=== PATIENT | male | born 1960 | race Caucasian/White ===

== ENCOUNTER → 2020-05-19 | Outpatient (CLI) | payer BC ==
--- NOTE | 2020-05-19 09:03 | CT ---
EXAMINATION TYPE: CT brain wo con DATE OF EXAM: 05/19/2020 HISTORY: Left sided ear pain with hearing loss and buzzing. CT DLP: 1180.9 mGycm. Automated Exposure Control for Dose Reduction was Utilized. TECHNIQUE: CT scan of the head is performed without contrast. COMPARISON: CT brain July 31, 2012. FINDINGS: There is no acute intracranial hemorrhage or midline shift identified. There is diffuse v entricular and sulcal prominence consistent with diffuse age-related cerebral atrophy. Marinelli-white mat ter differentiation fairly well maintained. [id number] mucosal thickening with some lobulation involving the maxillary sinuses bilaterally remains present. Moderate mucosal thickening and patchy o pacification ethmoid sinuses bilaterally again seen. Mild mucosal thickening inferior right frontal s inus and left greater than right sphenoid sinuses on current study. Globes are intact bilaterally. IMPRESSION: No acute intracranial hemorrhage or midline shift. There is mild diffuse age-related ce rebral atrophy redemonstrated and mild to moderate acute on chronic paranasal sinus disease redemonst rated, latter slightly more prominent versus prior.
== END | disposition home or self-care (01) ==
LOC: RADCTMAIN 07:50
PROVIDERS: ATTEND Internal Medicine
DX: G31.1 Senile degeneration of brain, not elsewhere classified (principal); Z88.0 Allergy status to penicillin; Z88.1 Allergy status to other antibiotic agents; Z88.8 Allergy status to other drugs, medicaments and biological substances
CPT/HCPCS: 70450

== ENCOUNTER → 2021-04-15 | Outpatient (CLI) | payer BC ==
--- NOTE | 2021-04-16 03:50 | MR ---
EXAMINATION TYPE: MR iac wo/w con DATE OF EXAM: 04/15/2021 COMPARISON: None HISTORY: Left sided hearing loss. CONTRAST: Standard multiplanar, multisequence MRI departmental protocol utilizing 11 mL intravenous Gadavist ga dolinium contrast. Multiplanar multiecho imaging of the brain and internal auditory canals was performed without and wit h IV contrast. There is some cerebral cortical atrophy. There is no mass effect nor midline shift. There is no evide nce of intracranial hemorrhage. Diffusion images show no definite focal acute infarct. The serrano-white matter structures have fairly normal signal pattern. There is no evidence of cerebral edema. Brainst em is intact. There is no evidence of orbital mass. There is mucosal thickening in the ethmoid sinuse s. There is mucosal thickening in the maxillary sinuses. Additional thin sections through the posterior fossa show normal appearing internal auditory canals. The acoustic nerve and vestibular nerve appear intact. The contrast images show no pathologic enhance ment. There is no sign of cerebellopontine angle mass. There is normal signal pattern of the mastoid sinuses. There is no sign of mastoiditis. There is normal enhancement of the venous sinuses. IMPRESSION: Negative MR scan of the brain. No focal posterior fossa abnormality. Ethmoid and maxillary sinusitis.
== END | disposition home or self-care (01) ==
LOC: RADMRIMAIN 21:27
PROVIDERS: ATTEND Otolaryngology
DX: H91.92 Unspecified hearing loss, left ear (principal); J32.8 Other chronic sinusitis
CPT/HCPCS: 70553; A9585

== ENCOUNTER 2021-07-25 15:06 | Emergency (ER) | payer BC ==
[2021-07-25 15:12] VITALS: TEMP 97.9
--- NOTE | 2021-07-25 15:27 | ED ---
General Adult HPI - General Source: patient Mode of arrival: ambulatory Limitations: no limitations <Bi Rodriguez - Last Filed: 07/25/21 15:27> <Nirav Lopez - Last Filed: 07/25/21 18:49> - General Chief complaint: Chest Pain Stated complaint: Chest Pain Time Seen by Provider: 07/25/21 15:19 - History of Present Illness Initial comments: Dictation was produced using [employer] dictation software. please excuse any grammatical, word or spelling errors. Chief Complaint: Patient is a 60-year-old male presents emergency department for chest pain for 3 weeks History of Present Illness: She 10-year-old male presents emergency department for chest pain. He states she's been having chest pain for the last 3 weeks. States that sharp into his right chest. Worse when he takes a deep breath. Patient denies any shortness of breath. He was seen at [facility] was diagnosed with pneumonia. He is given antibiotics. He completed the course however still is symptomatic in his chest. Patient has a history of blood clots. No recent travel. Denies any lower extremity symptoms. No calf tenderness or leg swelling. Is any fever. He has not been coughing recently. The ROS documented in this emergency department record has been reviewed and confirmed by me. Those systems with pertinent positive or negative responses have been documented in the HPI. All other systems are other negative and/or noncontributory. PHYSICAL EXAM: General Impression: Alert and oriented x3, not in acute distress HEENT: Normocephalic atraumatic, extra-ocular movements intact, pupils equal and reactive to light bilaterally, mucous membranes moist. Cardiovascular: Heart regular rate and rhythm Chest: Able to complete full sentences, no retractions, no tachypnea Abdomen: abdomen soft, non-tender, non-distended, no organomegaly Musculoskeletal: Pulses present and equal in all extremities, no peripheral edema Motor: no focal deficits noted Neurological: CN II-XII grossly intact, no focal motor or sensory deficits noted Skin: Intact with no visualized rashes Psych: Normal affect and mood ED course: 60-year-old male presents to the emergency department for atypical chest pain. Vital signs upon arrival are within acceptable limits. EKG shows no signs of ischemia or infarction. There is some concern that patient is having a PE given the duration of symptoms. D-dimer is ordered. He is not hypoxic and not tachycardic. Patient care will be signed out to Dr. Lopez. EKG interpretation: Ventricular rate he 1, normal sinus rhythm,. 164, QRS 82, QTC 46. No MA prolongation, no QTC prolongation, no ST or T-wave changes noted. Overall, this EKG is unremarkable (Bi Rodriguez) - Related Data Home Medications Medication Instructions Recorded Confirmed ALPRAZolam [Xanax] 0.5 mg PO BID PRN 07/25/21 07/25/21 HYDROcodone/APAP 10-325MG [[place] 1 tab PO QID 07/25/21 07/25/21 10-325] Meclizine [Antivert] 25 mg PO TID PRN 07/25/21 07/25/21 Omeprazole Magnesium [PriLOSEC OTC] 20 mg PO DAILY PRN 07/25/21 07/25/21 buPROPion HCL [buPROPion HCL SR] 150 mg PO DAILY 07/25/21 07/25/21 busPIRone HCL 7.5 - 15 mg PO TID PRN 07/25/21 07/25/21 Previous Rx's Medication Instructions Recorded levoFLOXacin 750 mg PO DAILY 7 Days #1 tab 07/25/21 Allergies Allergy/AdvReac Type Severity Reaction Status Date / Time No Known Allergies Allergy Verified 07/25/21 16:46 Review of Systems ROS Other: All systems not noted in ROS Statement are negative. <Bi Rodriguez - Last Filed: 07/25/21 15:27> ROS Other: All systems not noted in ROS Statement are negative. <Nirav Lopez - Last Filed: 07/25/21 18:49> ROS Statement: Those systems with pertinent positive or pertinent negative responses have been documented in the HPI. Past Medical History History of Any Multi-Drug Resistant Organisms: None Reported Past Surgical History: No Surgical Hx Reported Past Psychological History: Anxiety, Depression Smoking Status: Current every day smoker Past Alcohol Use History: None Reported Past Drug Use History: None Reported <Bi Rodriguez - Last Filed: 07/25/21 15:27> General Exam Limitations: no limitations <Bi Rodriguez - Last Filed: 07/25/21 15:27> Course Vital Signs 0107/25/21 07/25/21 15:08 15:36 18:37 Temperature 97.9 F Pulse Rate 55 L 69 Respiratory 22 18 18 Rate Blood Pressure 119/80 131/98 O2 Sat by Pulse 100 99 Oximetry Medical Decision Making - Lab Data Result diagrams: 07/25/21 15:34 07/25/21 15:34 <Nirav Lopez - Last Filed: 07/25/21 18:49> - Medical Decision Making Patient was signed out to me pending results of imaging. Patient presented originally complaining of pleurisy mild cough. He was treated for pneumonia one to 2 weeks ago, normally received a Z-Jarett. Believes that he requires stronger antibiotics. Laboratory studies were remarkable for leukocytosis of 15. D- dimer was elevated 2.22. EKG was evaluated by the prior ER physician and showed no signs of acute ischemia. Chest x-ray showed right upper lobe infiltrates. CT angiogram was pending and was remarkable for no pulmonary embolism but there are right upper lobe infiltrates. On reevaluation, patient's vital signs remained within normal limits and stable. He has no acute complaints at this time. I discussed the results with him. Hi s pain is improved. I do believe that he requires an additional dose of anabiotic so this time. He was in agreement. He'll be given Levaquin outpatient and be given a dose prior to discharge. I believe it is safe for him to be discharged home at this time and he was in agreement with the plan. I will provide the patient with a prescription for Levaquin 750 mg daily for 7 days. I instructed the patient to follow up with their PCP in the next 3 days. I explained that the patient should return to the emergency department if they experience any worsening symptoms. Strict return precautions were discussed with the patient. The patient expressed understanding of these instructions. I answered all questions that the patient had. The patient was discharged home in good condition with their prescriptions and follow up information. (Nirav Lopez) - Lab Data Lab Results 07/25/21 07/25/21 07/25/21 Range/Units 15:34 15:34 15:34 WBC 15.0 H (3.8-10.6) k/uL RBC 4.81 (4.30-5.90) m/uL Hgb 15.3 (13.0-17.5) gm/dL Hct 45.4 (39.0-53.0) % MCV 94.4 (80.0-100.0) fL MCH 31.7 (25.0-35.0) pg MCHC 33.6 (31.0-37.0) g/dL RDW 12.3 (11.5-15.5) % Plt Count 274 (150-450) k/uL MPV 6.9 Neutrophils % 73 % Lymphocytes % 19 % Monocytes % 5 % Eosinophils % 2 % Basophils % 1 % Neutrophils # 10.9 H (1.3-7.7) k/uL Lymphocytes # 2.9 (1.0-4.8) k/uL Monocytes # 0.7 (0-1.0) k/uL Eosinophils # 0.3 (0-0.7) k/uL Basophils # 0.1 (0-0.2) k/uL PT 9.9 (9.0-12.0) sec INR 0.9 (<1.2) APTT 24.1 (22.0-30.0) sec D-Dimer 2.22 H (<0.60) mg/L FEU Sodium 136 L (137-145) mmol/L Potassium 3.9 (3.5-5.1) mmol/L Chloride 104 (98-107) mmol/L Carbon Dioxide 25 (22-30) mmol/L Anion Gap 7 mmol/L BUN 16 (9-20) mg/dL Creatinine 1.17 (0.66-1.25) mg/dL Est GFR (CKD-EPI)AfAm 78 (>60 ml/min/1.73 sqM) Est GFR (CKD-EPI)NonAf 68 (>60 ml/min/1.73 sqM) Glucose 102 H (74-99) mg/dL Calcium 9.5 (8.4-10.2) mg/dL Coronavirus (PCR) (Not Detectd) 07/25/21 Range/Units 16:13 WBC (3.8-10.6) k/uL RBC (4.30-5.90) m/uL Hgb (13.0-17.5) gm/dL Hct (39.0-53.0) % MCV (80.0-100.0) fL MCH (25.0-35.0) pg MCHC (31.0-37.0) g/dL RDW (11.5-15.5) % Plt Count (150-450) k/uL MPV Neutrophils % % Lymphocytes % % Monocytes % % Eosinophils % % Basophils % % Neutrophils # (1.3-7.7) k/uL Lymphocytes # (1.0-4.8) k/uL Monocytes # (0-1.0) k/uL Eosinophils # (0-0.7) k/uL Basophils # (0-0.2) k/uL PT (9.0-12.0) sec INR (<1.2) APTT (22.0-30.0) sec D-Dimer (<0.60) mg/L FEU Sodium (137-145) mmol/L Potassium (3.5-5.1) mmol/L Chloride (98-107) mmol/L Carbon Dioxide (22-30) mmol/L Anion Gap mmol/L BUN (9-20) mg/dL Creatinine (0.66-1.25) mg/dL Est GFR (CKD-EPI)AfAm (>60 ml/min/1.73 sqM) Est GFR (CKD-EPI)NonAf (>60 ml/min/1.73 sqM) Glucose (74-99) mg/dL Calcium (8.4-10.2) mg/dL Coronavirus (PCR) Not Detected (Not Detectd) Disposition <Bi Rodriguez - Last Filed: 07/25/21 15:27> Is patient prescribed a controlled substance at d/c from ED?: No <Nirav Lopez - Last Filed: 07/25/21 18:49> Clinical Impression: Community acquired pneumonia, Pleurisy Disposition: HOME SELF-CARE Condition: Good Instructions (If sedation given, give patient instructions): Pneumonia (ED) Prescriptions: levoFLOXacin 750 mg PO DAILY 7 Days #1 tab Referrals: Froilan Salguero MD [Primary Care Provider] - 1-2 days
[2021-07-25 15:40] VITALS: RESP 18
[2021-07-25 15:46] LABS: Basophils # (A) 0.1 k/uL (0-0.2); Basophils % (A) 1 %; Eosinophils # (A) 0.3 k/uL (0-0.7); Eosinophils % (A) 2 %; HCT 45.4 % (39.0-53.0); HGB 15.3 gm/dL (13.0-17.5); Lymphocytes # (A) 2.9 k/uL (1.0-4.8); Lymphocytes % (A) 19 %; MCH 31.7 pg (25.0-35.0); MCHC 33.6 g/dL (31.0-37.0); MCV 94.4 fL (80.0-100.0); Mean Platelet Volume 6.9; Monocytes # (A) 0.7 k/uL (0-1.0); Monocytes % (A) 5 %; Neutrophils # (A) 10.9 k/uL (1.3-7.7); Neutrophils % (A) 73 %; Platelet Count 274 k/uL (150-450); RBC 4.81 m/uL (4.30-5.90); RDW 12.3 % (11.5-15.5)
[2021-07-25 16:03] LABS: Calcium 9.5 mg/dL (8.4-10.2); INR 0.9 (<1.2); Partial Thromboplastin Time 24.1 sec (22.0-30.0); Potassium 3.9 mmol/L (3.5-5.1); Prothrombin Time 9.9 sec (9.0-12.0)
--- NOTE | 2021-07-25 16:18 | XR ---
EXAMINATION TYPE: XR chest 1V portable DATE OF EXAM: 07/25/2021 COMPARISON: NONE HISTORY: Chest pain TECHNIQUE: Single frontal view of the chest is obtained. FINDINGS: Patchy increased attenuation is present in the right upper lobe. Cardiac mediastinal silho uette is within normal limits. There is no evident pneumothorax or pleural effusion. Right hemidiaphr agm shows possible eventration change. Bones are normal. IMPRESSION: Correlate for pneumonia.
--- NOTE | 2021-07-25 17:58 | CT ---
EXAMINATION TYPE: CT angio chest DATE OF EXAM: 07/25/2021 COMPARISON: None HISTORY: chest pain CT DLP: 638 mGycm Automated exposure control for dose reduction was used. CONTRAST: Performed with IV Contrast, patient injected with 80cc mL of Isovue 370. Images obtained from the thoracic inlet to the diaphragm with IV contrast. Three-D postprocessed images. There are multiple enlarged paratracheal and right bronchial lymph nodes that measure up to 3 cm. The re is some encasement of the right pulmonary artery. Thoracic aorta is intact. There is no aneurysm o r dissection. Anterior mediastinum appears fairly normal. There is no evidence of filling defect in t he pulmonary arteries. There are patchy pulmonary interstitial and airspace infiltrates in the right upper lobe. The other l marquise ron are fairly clear. Upper abdominal soft tissues are intact. There is clips from cholecystectomy. There is 6.5 cm cortica l cyst upper pole right kidney. Heart size is normal. There is no pericardial effusion. There is some sclerosis in the T10 vertebral body consistent with a Schmorl node. There is no significant thoracic compression deformity. Sternum is intact. IMPRESSION: No evidence of pulmonary embolism. There is mediastinal and right bronchial adenopathy. The patchy in filtrates in the right upper lobe. Adenopathy is likely inflammatory.
[2021-07-25] MEDS ORDERED: LEVOFLOXACIN 750 MG TAB PO STA (18:20)
[2021-07-25 18:40] VITALS: BP 131/98; PULSE 69
== END 2021-07-25 18:37 | disposition home or self-care (01) ==
LOC: EC 15:06
DX: J18.9 Pneumonia, unspecified organism (principal); Z20.822 Contact with and (suspected) exposure to COVID-19; F32.A Depression, unspecified; F41.9 Anxiety disorder, unspecified; F17.200 Nicotine dependence, unspecified, uncomplicated; Z79.899 Other long term (current) drug therapy
CPT/HCPCS: 36415; 93005; 85379; 80048; 85025; 85610; 85730; 87635; 71045; 71275; 99285; Q9967

== ENCOUNTER 2021-08-25 11:48 | Day surgery (SDC) | payer BC ==
[2021-08-24 08:54] VITALS: BMI 33.4
[~2021-08-25 11:48] MED LIST: ALBUTEROL NEB (CONC) 2.5 MG/0.5 ML INHALATION ONE; DEXAMETHASONE SOD PHOSPHATE 4 MG/ML 1 ML VIAL IV ONE; HYDROmorphone 0.5 MG/0.5 ML SYRINGE IVP PRN; LACTATED RINGERS 1,000 ML IV SCH; LIDOCAINE 1% (10MG/ML) FOR IV START INTRADERMA PRN; LIDOCAINE 2% (PF) 20 MG/ML 5 ML VIAL INHALATION ONE; LIDOCAINE VISCOUS 300 MG/15 ML CUP MUCOUS MEM ONE; MIDAZOLAM 2 MG/2 ML VIAL IV PRN; ONDANSETRON 4 MG/2 ML VIAL IVP ONE; SODIUM CHLORIDE 0.9% 1,000 ML IV SCH
[2021-08-25] MEDS ORDERED: LACTATED RINGERS 1,000 ML IV ONE (12:09)
[2021-08-25] MEDS ORDERED: MIDAZOLAM 2 MG/2 ML VIAL ONE (13:23)
[2021-08-25] MEDS ORDERED: POTASSIUM PHOSPHATE IV ONE (13:23)
[2021-08-25] MEDS ORDERED: GLYCOPYRROLATE 0.2 MG/ML 2 ML VIAL ONE (13:23)
[2021-08-25] MEDS ORDERED: fentaNYL (PF) 50 MCG/ML 2 ML AMP ONE (13:23)
[2021-08-25] MEDS ORDERED: ROCURONIUM 10 MG/ML (5 ML VIAL) IV ONE (13:23)
[2021-08-25] MEDS ORDERED: PROPOFOL 10 MG/ML 20 ML VIAL IV ONE (13:23)
[2021-08-25] MEDS ORDERED: LIDOCAINE 1% INJ 10MG/ML (20 ML MDV) ONE (13:23)
[2021-08-25] MEDS ORDERED: SUCCINYLCHOLINE CHLORIDE 100 MG/5 ML SYR IV ONE (13:23)
--- NOTE | 2021-08-25 14:03 | CT ---
EXAMINATION TYPE: CT Chest mikael Shafer Protocol DATE OF EXAM: 08/25/2021 COMPARISON: CT chest 07/25/2021 HISTORY: Bronchial Navigation. CT DLP: 555 mGycm Automated exposure control for dose reduction was used. Helical imaging through the chest 4 procedure planning purposes. FINDINGS: Subpleural nodule in the left lower lobe is again noted. Left upper lobe lung nodule is again seen. M ultiple nodules in the right upper lobe are present as on prior. Subpleural nodule in the right lower lobe again seen, there is no pleural or pericardial effusion. No endobronchial lesion. Retrocaval pr etracheal adenopathy, prevascular nodes are again seen. Right hilar adenopathy is present. Bones are stable. There are coronary artery calcifications. IMPRESSION: FINDINGS SUGGEST METASTATIC DISEASE. CT PERFORMED FOR PROCEDURE PLANNING PURPOSES.
[2021-08-25 14:55] VITALS: TEMP 97.8
--- NOTE | 2021-08-25 15:23 | XR ---
EXAMINATION TYPE: XR chest 1V portable DATE OF EXAM: 08/25/2021 COMPARISON: Chest x-ray 07/24/2021, 08/12/2021 HISTORY: Status post bronchoscopy TECHNIQUE: Single frontal view of the chest is obtained. FINDINGS: There is no evident pneumothorax. Airspace disease in the right upper lobe may be due to b ronchoscopy. There is no evident pneumothorax or pleural effusion. There is mediastinal adenopathy. IMPRESSION: Post bronchoscopy changes, no evident pneumothorax, difficult to exclude hemorrhage vers us changes due to washings.
[2021-08-25 15:56] VITALS: BP 116/70; PULSE 62; RESP 16
--- NOTE | 2021-08-25 18:52 | P.PCN ---
Date of Procedure: 08/25/21 Preoperative Diagnosis: 1 right hilar mass 2 mediastinal lymphadenopathy 3 right upper lobe Pulmonary nodules, multiple Postoperative Diagnosis: 1 mediastinal lymphadenopathy 2 extrinsic compression of the anterior segment of the right upper lobe with possible endobronchial involvement Procedure(s) Performed: 1 Endobronchial ultrasound EBUS 2 EBUS directed/guidance transbronchial needle aspirate of station 4R, 10 on and 7 lymph nodes 3 endobronchial biopsies of the right upper lobe anterior segment, and the bronchial brushing, bronchial alveolar lavage of the right upper lobe. Anesthesia: NICOLEA Surgeon: Vishnu Pop Urine output (ml): 0 Pathology: other Condition: stable Disposition: same day Operative Findings: This procedure was done in the endoscopy suite. Timeout was obtained. Consent was signed. Following that, the patient was intubated in the usual fashion by anesthesia team. The patient was intubated by #8 orotracheal tube. Position of the tube was confirmed by a flexible bronchoscope. The tube was fixed at 21 cm lip line and the length of the tube was also cut and the patient was given appropriate mechanical ventilation to maintain oxygenation and ventilation After securing the airway, the EBUS bronchoscope was introduced into the airway. Direct visualization using the EBUS bronchoscope of the mediastinum was done. Based on my examination, there was a large station 4R lymph node measuring more than 3.5, cm in size and another 3 cm station 10 R lymph node was identified. At the level of the subcarinal, there was a 1.3 x 1 cm subcarinal lymph node identified. No lymphadenopathy along this patient's 2L, 4 mL, 2R, 10 L, 10 R, 11R. After echo good visualization of the mediastinal lymph nodes, the main pathology for pathologic lymph nodes were station 4R, 10 R and less likely station 7. He was guided transbronchial needle aspirate of those 3 stations were done. A total of 3 passes were taken at the level of 4R, 5 passes of the level of 10 R, repair through the level of 7 and adequacy of the samples were confirmed by pathology the bedside. Cell blocks were also sent. No endobronchial bleeding was encountered Following that, he was bronchoscope was removed and a regular flexible bronchoscope was introduced. Airway inspection was done. Distal trachea was within normal limits. Bilateral mainstem bronchi were normal. The right upper lobe bronchus was patent. The anterior segment of the right upper lobe bronchus was significantly narrowed and was very difficult to get the bronchoscope past the right upper lobe bronchus anterior segment. This area was extensively compressed and there was high likelihood that there was endobronchial involvement knowing that the underlying mucosa was quite irregular and swollen and friable. The apical segment of the ST segment in the right upper lobe were patent and there were within normal limits. The bronchoscope was noted to the bronchus intermedius and further examination of the right middle lobe bronchus and the right lower lobe bronchus and the base segment of the right lung were within normal limits. Following that, the bronchus, was moved to the left side and the left mainstem bronchus, left upper lobe bronchus and left lower bronchus were inspected and the various segments of the left upper lobe and the left lower lobe were patent. The bronchoscope was then removed today and his segment of the right upper lobe. Under direct visualization, endobronchial biopsies of the right upper lobe anterior segment was done and 7-8 biopsies were obtained in that location. Limited amount of bleeding was encountered. In the bronchial brushing of the anterior segment of the right upper lobe was done and at the completion of the procedure, and bronchial lavage of that his segment of the right upper lobe was done where a total of 60 mL of fluid was infused and 50 mL was aspirated back. No bleeding was encountered. The patient tolerated the procedure well. Herpetic and was suctioning was done. Bronchoscope was removed. Following that, the patient was extubated and the patient was transferred recovery in stable condition. Postop diagnosis is consistent with mediastinal lymphadenopathy in addition to mass effect involving the anterior segment of the right upper lobe, hilar echo for malignancy/lung cancer.
== END 2021-08-25 16:05 | disposition home or self-care (01) ==
LOC: ORWHC2ENDO 11:48
PROVIDERS: ATTEND Internal Medicine Critical Care Medicine
DX: Z79.891 Long term (current) use of opiate analgesic (principal); Z79.899 Other long term (current) drug therapy; G89.29 Other chronic pain; M54.9 Dorsalgia, unspecified; Z87.01 Personal history of pneumonia (recurrent); F17.200 Nicotine dependence, unspecified, uncomplicated; Z90.49 Acquired absence of other specified parts of digestive tract; Z98.890 Other specified postprocedural states; K21.9 Gastro-esophageal reflux disease without esophagitis
CPT/HCPCS: 88305; 71045; 71250; 31625; 31623; 31624; 31653; J2250; J1100; J2405; J2001; J3010; J0330; J2704; 31627; 88104; 88108; 88173; 88341; 88342

== ENCOUNTER → 2021-09-08 | Outpatient (CLI) | payer BC ==
--- NOTE | 2021-09-08 11:59 | MR ---
EXAMINATION TYPE: MR brain wo/w con DATE OF EXAM: 09/08/2021 11:51 AM COMPARISON: 04/15/2021 HISTORY: C34.11 Lung cancer, Chronic Left sided hearing loss CONTRAST: Patient received 10 mL intravenous Gadavist gadolinium contrast. Multiplanar and multispin-echo imaging of the brain was performed . Pre and post contrast enhanced i mages are obtained. The ventricles, basal cisterns and sulci overlying the cerebral convexities are mildly enlarged. There is evidence of mild periventricular white matter ischemic demyelination. Remote deep white matter insults are also noted. No acute edema is seen on diffusion weighted imaging. There is no evidence for midline shift or mass effect. Acute intracranial hemorrhage or extra-axial collection is not evident. No enhancing lesions are seen. The paranasal sinuses and mastoid air cells are well-aerated. IMPRESSION: Age-related atrophic and chronic small vessel ischemic change. No acute intracranial process at this time. No enhancing lesions are seen.
== END | disposition home or self-care (01) ==
LOC: RADMRIMAIN 10:43
PROVIDERS: ATTEND Internal Medicine Hematology & Oncology
DX: C34.11 Malignant neoplasm of upper lobe, right bronchus or lung (principal); I67.82 Cerebral ischemia; G31.89 Other specified degenerative diseases of nervous system
CPT/HCPCS: 70553; A9585

== ENCOUNTER → 2021-09-16 | Outpatient (CLI) | payer BC ==
--- NOTE | 2021-09-19 15:29 | PE ---
Nuclear medicine PET/CT HISTORY: Lung carcinoma, C 34.11, initial, right Patient received 11.9 mCi F-18 FDG intravenously and delayed scanning was performed from the skull ba se to the mid thighs. A localization and attenuation correction CT scan was performed. Correlation to chest CT 08/25/2021, CT 07/25/2021 Average mediastinal uptake SUV 2, average liver uptake, SUV 2.2 Chest and neck: There is no supraclavicular or cervical adenopathy present. The retrocaval pretracheal mediastinal mass shows associated hypermetabolic uptake, SUV is 5.3. Right hilar adenopathy SUV 8.6, prevascular nodes are present with associated abnormal uptake SUV 3.8, the re is a left upper lobe soft tissue nodule present adjacent to the mediastinum measuring 19 mm with a ssociated uptake, SUV is 3. In the left posterior lung base there is a soft tissue nodule present as noted on prior CT. Subpleural nodules also present at the posterior right lung base as on prior exam. Within the right upper lobe along the fissure soft tissue nodule is again noted, additional right up per lobe soft tissue nodules are present one of which is in the subpleural location with associated s piculated margins, no significant uptake. Additional nodules are present in the right upper lobe towa rds the apex without uptake. ABDOMEN: No evident liver mass. No adrenal mass. Right kidney shows a soft tissue mass anteriorly ed picious for renal cell carcinoma measuring approximately 6.2 cm., SUV 3.2. No retroperitoneal adenopa thy or ascites. Left inguinal adenopathy is present with associated uptake, SUV 9.4. Osseous structures show multiple foci of hypermetabolic uptake. Lower thoracic vertebral body shows a bnormal SUV, focus of uptake SUV 4.6 at T10 with focus of sclerosis, central lytic appearance. Lower lumbar spine shows a focus of uptake SUV is 12.9 at L4. Posterior iliac lesions are present bilateral ly, there are areas of sclerosis and mixed low attenuation, SUV 7.1, 6.8. impression: Metastatic disease. Possible renal cell carcinoma.
== END | disposition home or self-care (01) ==
LOC: RADPETMAIN 14:14
PROVIDERS: ATTEND Internal Medicine Hematology & Oncology
DX: C34.11 Malignant neoplasm of upper lobe, right bronchus or lung (principal); C79.9 Secondary malignant neoplasm of unspecified site
CPT/HCPCS: 78815; A9552

== ENCOUNTER → 2021-12-23 | Outpatient (CLI) | payer BC ==
--- NOTE | 2021-12-27 15:21 | PE ---
Nuclear medicine PET/CT HISTORY: C 34.11, right lung carcinoma, subsequent Patient received 10.1 mCi F-18 FDG intravenously and delayed scanning was performed from the skull ba se to the mid thighs. A localization and attenuation correction CT scan was performed. Correlation prior nuclear medicine PET/CT 09/16/2021 Average mediastinal uptake SUV 1.5, average liver uptake SUV 1.6 Chest and neck: There is improvement in the abnormal uptake seen on prior exam. No cervical or suprac lavicular adenopathy. Left prevascular node measures 15 mm in short axis shows abnormal uptake, SUV 4 , left hilar soft tissue is irregular, SUV 2.6. The abnormal soft tissue in the right hilar region rodriguez s improved somewhat, retrocaval pretracheal node does not show appreciable uptake, right hilar uptake seen on prior exam is no longer seen. There is a small right pleural effusion which has developed in the interval. Small subpleural node at the left posterior costophrenic sulcus is subcentimeter in si ze, similar. Uptake along the thyroid gland is symmetric and increased as compared to prior, SUV 3.4 ABDOMEN: There is no evident adrenal mass. No liver mass or suspicious uptake. Soft tissue mass anter iorly at the level of the right kidney is again seen and measures approximately the same, 6 cm, no de finite associated uptake. Smaller indeterminate exophytic soft tissue focus at the lower pole of the right kidney is present. No retroperitoneal adenopathy. No suspicious uptake. Prostate shows associat ed calcifications. No pelvic adenopathy. Bladder is decompressed, thickening of the wall is indetermi nadine. Left inguinal node shows associated uptake, SUV 4.0 Osseous structures show no suspicious uptake. There is sclerosis involving the iliac bones posteriorl y similar to prior, right ilium shows some persistent abnormal uptake, SUV 4.7. IMPRESSION: There is improvement in abnormal uptake as described
== END | disposition home or self-care (01) ==
LOC: RADPETMAIN 08:15
PROVIDERS: ATTEND Internal Medicine Hematology & Oncology
DX: C34.11 Malignant neoplasm of upper lobe, right bronchus or lung (principal)
CPT/HCPCS: 78815; A9552

== ENCOUNTER → 2022-04-07 | Outpatient (CLI) | payer BC ==
--- NOTE | 2022-04-09 13:55 | PE ---
EXAMINATION TYPE: PET CT fusion skull to thigh DATE OF EXAM: 04/07/2022 CLINICAL INDICATION:Male, 61 years old with history of C34.11 lung cancer; TECHNIQUE: Following the intravenous administration of 12.5 mCi of F-18 FDG, whole body images are performed from the skull base to the midthigh. Images are reviewed on the computer in the coronal, a xial, and sagittal planes. Reconstructed rotating images are created on independent workstation and reviewed on the computer. A non-contrast CT is performed in conjunction with the PET scan. Glucose level 96 mg/dL COMPARISON: CT 08/26/2019, PET/CT 12/23/2021 and 09/16/2021 FINDINGS: Mediastinal SUV mean is 1.0. Hepatic parenchyma SUV mean is 2.6. SKULL BASE AND NECK: No suspicious FDG activity. CHEST, MEDIASTINUM, AND HILAR REGION: Persistent FDG activity is seen within the left upper lung along the mediastinal border with 2 areas demonstrate increased FDG activity with the more inferior measuring Max SUV 6.6 previously Max SUV 2. 6. Now measuring larger at 2.0 cm previously 1.0 cm. An additional mass more superiorly measuring lar zaira at 2.3 cm previously 1.5 measuring in maximum SUV 7.0 previously max SUV 3.9 may represent medias tinal lymph node in the AP window. ABDOMEN AND PELVIS: No suspicious FDG activity. OSSEOUS STRUCTURES: No suspicious FDG activity within the right iliac bone with max SUV 7.2, previous ly 4.7. T2 left transverse process SUV 2.9, previously 1.6. OTHER CT: Mild coronary artery atherosclerosis. The gallbladder surgically absent. Right renal cysts one of which is more complex and has septations present. IMPRESSION: 1. Progression of disease with increased metabolic activity with increased size of the left upper zulma ng mass with soft tissue in the AP window also demonstrating increased size and FDG activity. 2. Suspicious FDG activity in the right iliac bone which has increased in metabolic activity compared to prior on 12/23/2021. Additional increase FDG activity in the Left transverse process of T2. Attenti on follow-up imaging.
== END | disposition home or self-care (01) ==
LOC: RADPETMAIN 13:19
PROVIDERS: ATTEND Internal Medicine Hematology & Oncology
DX: C34.11 Malignant neoplasm of upper lobe, right bronchus or lung (principal)
CPT/HCPCS: 78815; A9552

== ENCOUNTER 2022-05-25 10:47 | Emergency (ER) | payer BC ==
[2022-05-25 11:20] VITALS: TEMP 98.2
--- NOTE | 2022-05-25 11:52 | XR ---
EXAMINATION TYPE: XR KUB DATE OF EXAM: 05/25/2022 COMPARISON: NONE HISTORY: Pain TECHNIQUE: Single supine KUB image of the abdomen is obtained FINDINGS: Small bowel demonstrates no evidence for dilatation or air fluid levels. Gas and fecal material is seen in non-distended colon. No convincing evidence for pneumoperitoneum. No unusual calcifications. The lung bases are clear. The osseous structures are intact. IMPRESSION: 1. Nonspecific nonobstructive bowel gas pattern.
[2022-05-25 12:04] LABS: Appearance,Urine Clear (Clear); Bacteria,Urine Rare /hpf; Bilirubin,Urine Negative (Negative); Blood,Urine Negative (Negative); Color,Urine Yellow; Glucose,Urine (UA) Negative (Negative); Ketones,Urine Negative (Negative); Leukocyte Esterase,Urine Negative (Negative); Mucus,Urine Occasional /hpf; Nitrite,Urine Negative (Negative); Protein,Urine 1+ (Negative); Specific Gravity,Urine 1.028 (1.001-1.035); WBC,Urine 3 /hpf (0-5)
[2022-05-25] MEDS ORDERED: DICYCLOMINE 20 MG TAB PO STA (13:02)
[2022-05-25] MEDS ORDERED: SODIUM CHLORIDE 0.9% 1,000 ML IV ONE (13:02)
--- NOTE | 2022-05-25 13:08 | ED ---
Abdominal Pain HPI - General Chief Complaint: Abdominal Pain Stated Complaint: abd pain Time Seen by Provider: 05/25/22 12:48 Source: patient Mode of arrival: ambulatory Limitations: no limitations - History of Present Illness Initial Comments: This patient is a 61-year-old man who presents to have evaluation of diffuse abdominal pain. He states it is been going on probably a little over 2 weeks now. The pains are intermittent. They can last hours at a time. He notes that they're sometimes better if he lies down. He has not noted any exacerbating factors. He does note that there seems to be at times a gassy kind of crampy component and at times sharp component. He does have some associated nausea but no vomiting. Patient has not noted any change in urination. Patient does note that he is only having bowel movements every 5 days to a week or so. No bloody or tarry stools. MD Complaint: abdominal pain Onset/Timin -: week(s) Location: diffuse Radiation: none Migration to: no migration Severity: moderate Quality: cramping, sharp Consistency: intermittent Improves With: nothing Worsens With: nothing Associated Symptoms: nausea, constipation - Related Data Home Medications Medication Instructions Recorded Confirmed HYDROcodone/APAP 10-325MG [[place] 1 tab PO QID 07/25/21 08/24/21 10-325] Meclizine [Antivert] 25 mg PO TID 07/25/21 08/24/21 Omeprazole Magnesium [PriLOSEC OTC] 20 mg PO DAILY 07/25/21 08/24/21 buPROPion HCL [buPROPion HCL SR] 150 mg PO DAILY 08/24/21 08/24/21 hydrOXYzine HCL 10 mg PO BID PRN 08/24/21 08/24/21 Previous Rx's Medication Instructions Recorded oxyCODONE-APAP 7.5-325MG [Percocet 1 tab PO Q4HR PRN 3 Days #18 tab 05/25/22 7.5-325 mg] Allergies Allergy/AdvReac Type Severity Reaction Status Date / Time No Known Allergies Allergy Verified 05/25/22 11:20 Review of Systems ROS Statement: Those systems with pertinent positive or pertinent negative responses have been documented in the HPI. ROS Other: All systems not noted in ROS Statement are negative. Constitutional: Denies: fever, chills Respiratory: Denies: cough, dyspnea Cardiovascular: Denies: chest pain, palpitations Gastrointestinal: Reports: abdominal pain, nausea, constipation. Denies: vomiting, diarrhea, hematemesis, melena, hematochezia Genitourinary: Denies: dysuria, frequency, hematuria, testicular pain Musculoskeletal: Denies: back pain Skin: Denies: rash Neurological: Denies: headache, weakness, numbness Past Medical History Past Medical History: Cancer, GERD/Reflux Additional Past Medical History / Comment(s): Chronic back pain. Vertigo. small cell lung CA History of Any Multi-Drug Resistant Organisms: None Reported Past Surgical History: No Surgical Hx Reported Past Anesthesia/Blood Transfusion Reactions: No Reported Reaction Additional Past Anesthesia/Blood Transfusion Reaction / Comment(s): Has never had anesthesia. Past Psychological History: Anxiety, Depression Smoking Status: Current every day smoker Past Alcohol Use History: None Reported Past Drug Use History: None Reported - Past Family History Mother Family Medical History: Cancer Father Family Medical History: Cancer General Exam Limitations: no limitations General appearance: alert, in no apparent distress Head exam: Present: atraumatic, normocephalic Eye exam: Present: normal appearance. Absent: scleral icterus, conjunctival injection Neck exam: Present: normal inspection Respiratory exam: Present: normal lung sounds bilaterally. Absent: respiratory distress, wheezes, rales, rhonchi, stridor Cardiovascular Exam: Present: regular rate, normal rhythm, normal heart sounds. Absent: systolic murmur, diastolic murmur, rubs, gallop GI/Abdominal exam: Present: soft. Absent: distended, tenderness, guarding, rebound, rigid, organomegaly, mass, pulsatile mass, hernia Extremities exam: Present: normal inspection, normal capillary refill. Absent: pedal edema, calf tenderness Back exam: Present: normal inspection. Absent: CVA tenderness (R), CVA tenderness (L) Neurological exam: Present: alert Skin exam: Present: warm, dry, intact, normal color. Absent: rash Course Vital Signs 05/25/22 05/25/22 11:17 15:46 Temperature 98.2 F Pulse Rate 70 60 Respiratory 18 18 Rate Blood Pressure 108/75 120/89 O2 Sat by Pulse 96 98 Oximetry Medical Decision Making - Medical Decision Making Patient is a 61-year-old man here with abdominal pain and found to have some mild pancreatitis as well as some suspected new metastatic disease. He has had decent relief of pain with the analgesic here. I discussed at my plan was to admit him and have him seen by his oncologist as well as have GI rest for the pancreatitis. The patient stated that he wanted to go home. He will follow-up with the oncologist tomorrow. He will return should there be any worsening or if he is not having adequate pain relief at home. Discussed other return parameters. - Lab Data Result diagrams: 05/25/22 13:11 05/25/22 13:11 Lab Results 05/25/22 05/25/22 05/25/22 Range/Units 11:36 13:11 13:11 WBC 12.0 H (3.8-10.6) k/uL RBC 3.70 L (4.30-5.90) m/uL Hgb 12.4 L (13.0-17.5) gm/dL Hct 36.1 L (39.0-53.0) % MCV 97.5 (80.0-100.0) fL MCH 33.4 (25.0-35.0) pg MCHC 34.3 (31.0-37.0) g/dL RDW 12.0 (11.5-15.5) % Plt Count 260 (150-450) k/uL MPV 6.8 Neutrophils % 92 % Lymphocytes % 3 % Monocytes % 4 % Eosinophils % 1 % Basophils % 0 % Neutrophils # 11.1 H (1.3-7.7) k/uL Lymphocytes # 0.3 L (1.0-4.8) k/uL Monocytes # 0.5 (0-1.0) k/uL Eosinophils # 0.1 (0-0.7) k/uL Basophils # 0.0 (0-0.2) k/uL Sodium 132 L (137-145) mmol/L Potassium 4.1 (3.5-5.1) mmol/L Chloride 97 L (98-107) mmol/L Carbon Dioxide 28 (22-30) mmol/L Anion Gap 7 mmol/L BUN 21 H (9-20) mg/dL Creatinine 1.09 (0.66-1.25) mg/dL Est GFR (CKD-EPI)AfAm 85 (>60 ml/min/1.73 sqM) Est GFR (CKD-EPI)NonAf 73 (>60 ml/min/1.73 sqM) Glucose 99 (74-99) mg/dL Plasma Lactic Acid Contreras (0.7-2.0) mmol/L Calcium 8.1 L (8.4-10.2) mg/dL Total Bilirubin 0.6 (0.2-1.3) mg/dL AST 31 (17-59) U/L ALT 21 (4-49) U/L Alkaline Phosphatase 84 (38-126) U/L C-Reactive Protein 5.5 H (<1.0) mg/dL Total Protein 6.6 (6.3-8.2) g/dL Albumin 3.9 (3.5-5.0) g/dL Amylase 544 H* (30-110) U/L Lipase 4184 H (23-300) U/L Urine Color Yellow Urine Appearance Clear (Clear) Urine pH 6.0 (5.0-8.0) Ur Specific [place] 1.028 (1.001-1.035) Urine Protein 1+ H (Negative) Urine Glucose (UA) Negative (Negative) Urine Ketones Negative (Negative) Urine Blood Negative (Negative) Urine Nitrite Negative (Negative) Urine Bilirubin Negative (Negative) Urine Urobilinogen 2.0 (<2.0) mg/dL Ur Leukocyte Esterase Negative (Negative) Urine WBC 3 (0-5) /hpf Urine Bacteria Rare H (None) /hpf Urine Mucus Occasional H (None) /hpf 05/25/22 Range/Units 13:11 WBC (3.8-10.6) k/uL RBC (4.30-5.90) m/uL Hgb (13.0-17.5) gm/dL Hct (39.0-53.0) % MCV (80.0-100.0) fL MCH (25.0-35.0) pg MCHC (31.0-37.0) g/dL RDW (11.5-15.5) % Plt Count (150-450) k/uL MPV Neutrophils % % Lymphocytes % % Monocytes % % Eosinophils % % Basophils % % Neutrophils # (1.3-7.7) k/uL Lymphocytes # (1.0-4.8) k/uL Monocytes # (0-1.0) k/uL Eosinophils # (0-0.7) k/uL Basophils # (0-0.2) k/uL Sodium (137-145) mmol/L Potassium (3.5-5.1) mmol/L Chloride (98-107) mmol/L Carbon Dioxide (22-30) mmol/L Anion Gap mmol/L BUN (9-20) mg/dL Creatinine (0.66-1.25) mg/dL Est GFR (CKD-EPI)AfAm (>60 ml/min/1.73 sqM) Est GFR (CKD-EPI)NonAf (>60 ml/min/1.73 sqM) Glucose (74-99) mg/dL Plasma Lactic Acid Contreras 1.3 (0.7-2.0) mmol/L Calcium (8.4-10.2) mg/dL Total Bilirubin (0.2-1.3) mg/dL AST (17-59) U/L ALT (4-49) U/L Alkaline Phosphatase (38-126) U/L C-Reactive Protein (<1.0) mg/dL Total Protein (6.3-8.2) g/dL Albumin (3.5-5.0) g/dL Amylase (30-110) U/L Lipase (23-300) U/L Urine Color Urine Appearance (Clear) Urine pH (5.0-8.0) Ur Specific [place] (1.001-1.035) Urine Protein (Negative) Urine Glucose (UA) (Negative) Urine Ketones (Negative) Urine Blood (Negative) Urine Nitrite (Negative) Urine Bilirubin (Negative) Urine Urobilinogen (<2.0) mg/dL Ur Leukocyte Esterase (Negative) Urine WBC (0-5) /hpf Urine Bacteria (None) /hpf Urine Mucus (None) /hpf Disposition Clinical Impression: Abdominal pain, Pancreatitis Narrative: Suspect metastatic carcinoma Disposition: HOME SELF-CARE Condition: Good Instructions (If sedation given, give patient instructions): Pancreatitis (ED), Abdominal Pain (ED) Prescriptions: oxyCODONE-APAP 7.5-325MG [Percocet 7.5-325 mg] 1 tab PO Q4HR PRN 3 Days #18 tab PRN Reason: Pain Is patient prescribed a controlled substance at d/c from ED?: Yes Referrals: Froilan Salguero MD [Primary Care Provider] - 1-2 days Chele Carrington MD [STAFF PHYSICIAN] - 1-2 days
[2022-05-25 13:32] LABS: Basophils % (A) 0 %; Eosinophils # (A) 0.1 k/uL (0-0.7); Eosinophils % (A) 1 %; HCT 36.1 % (39.0-53.0); HGB 12.4 gm/dL (13.0-17.5); Lymphocytes # (A) 0.3 k/uL (1.0-4.8); Lymphocytes % (A) 3 %; MCH 33.4 pg (25.0-35.0); MCHC 34.3 g/dL (31.0-37.0); MCV 97.5 fL (80.0-100.0); Mean Platelet Volume 6.8; Monocytes # (A) 0.5 k/uL (0-1.0); Monocytes % (A) 4 %; Neutrophils # (A) 11.1 k/uL (1.3-7.7); Neutrophils % (A) 92 %; Platelet Count 260 k/uL (150-450)
[2022-05-25 14:38] LABS: Albumin 3.9 g/dL (3.5-5.0); Calcium 8.1 mg/dL (8.4-10.2); Potassium 4.1 mmol/L (3.5-5.1); Total Bilirubin 0.6 mg/dL (0.2-1.3); Total Protein 6.6 g/dL (6.3-8.2)
[2022-05-25 14:51] LABS: C Reactive Protein 5.5 mg/dL (<1.0)
[2022-05-25] MEDS ORDERED: MORPHINE SULFATE 4 MG/ML SYRINGE IV STA (15:31)
--- NOTE | 2022-05-25 16:15 | CT ---
EXAMINATION TYPE: CT abdomen pelvis w con DATE OF EXAM: 05/25/2022 COMPARISON: PET/CT 04/07/2022 HISTORY: abdominal pain, hx of lung ca. CT DLP: 1079.7 mGycm CONTRAST: CT scan of the abdomen and pelvis is performed without Oral Contrast and with IV Contrast, patient in jected with 100 mL of Isovue 300. FINDINGS: LUNG BASES-: Left lower lobe atelectasis and/or infiltrate with small effusion. LIVER/GB: No calcified gallstones. 2 numerous to count small hypoattenuating lesions scattered thro ughout the liver compatible with metastatic disease. Biliary tree is of normal caliber. PANCREAS: Mild stranding about the pancreatic tail may reflect mild pancreatitis. Correlate with amyl ase and lipase. SPLEEN: No splenic enlargement. No lesion seen. ADRENALS: No nodule. No thickening. KIDNEYS/BLADDER: No hydronephrosis. No nephrolithiasis. Solid right renal mass measuring 5.4 x 4.0 cm compatible with renal cell carcinoma. Multiple bilateral simple renal cysts. Urinary bladder gross ly unremarkable. BOWEL: Normal appendix. Normal bowel caliber. No inflammation. GENITAL ORGANS: No gross abnormality. LYMPH NODES: No greater than 1cm abdominal or pelvic lymph nodes are appreciated. AORTA: No significant abnormality. OSSEOUS STRUCTURES: Right posterior iliac lesion OTHER: Small amount of fluid seen within the pelvis. IMPRESSION: 1. Findings suggest mild pancreatitis. Correlate clinically. No evidence for abscess or pseudocyst. 2. Findings suspicious for metastatic disease to the liver. 3. Right renal cell carcinoma. 4. Lesion to the right iliac bone likely metastatic in nature.
[2022-05-25 16:47] VITALS: BP 127/92; PULSE 82; RESP 16
== END 2022-05-25 17:00 | disposition home or self-care (01) ==
LOC: EC 10:47
DX: K85.90 Acute pancreatitis without necrosis or infection, unspecified (principal); K21.9 Gastro-esophageal reflux disease without esophagitis; F17.200 Nicotine dependence, unspecified, uncomplicated; Z85.118 Personal history of other malignant neoplasm of bronchus and lung; Z79.899 Other long term (current) drug therapy
CPT/HCPCS: 36415; 80053; 82150; 83605; 83690; 85025; 86140; 81001; 74018; 74177; 99284; 96374; 96361; J2270; Q9967

== ENCOUNTER 2022-05-27 15:53 | Observation (INO) | payer BC ==
[2022-05-27] MEDS ORDERED: ONDANSETRON 4 MG/2 ML VIAL IVP STA (19:20)
[2022-05-27] MEDS ORDERED: HYDROmorphone 0.5 MG/0.5 ML SYRINGE IVP STA (19:20)
[2022-05-27] MEDS ORDERED: PANTOPRAZOLE 40 MG/10 ML VIAL IVP STA (19:20)
[2022-05-27] MEDS ORDERED: SODIUM CHLORIDE 0.9% 1,000 ML IV STA (19:20)
--- NOTE | 2022-05-27 19:30 | ED ---
General Adult HPI - General Chief complaint: Abdominal Pain Stated complaint: ABD PAIN Time Seen by Provider: 05/27/22 16:32 Source: patient, RN notes reviewed, old records reviewed Mode of arrival: ambulatory Limitations: no limitations - History of Present Illness Initial comments: This is a 61-year-old male presents emergency room ambulatory with complaints of increased abdominal pain nausea and dehydration. States he was seen here a couple of days ago for same and diagnosed with pancreatitis. He has had a decreased appetite has been trying to increase his fluid intake. Worsening nausea but no vomiting. Does have a history of lung cancer with metastasis. He does see Dr. Mace and is scheduled to see him on Sunday. HEENT no on . Last chemo May 06 with radiation. -: week(s) (2) Location: abdomen Radiation: back Consistency: constant Improves with: none Associated Symptoms: loss of appetite, malaise, nausea/vomiting (no vomiting) - Related Data Home Medications Medication Instructions Recorded Confirmed HYDROcodone/APAP 10-325MG [[place] 1 tab PO Q4H PRN 07/25/21 05/27/22 10-325] Meclizine [Antivert] 25 mg PO TID 07/25/21 05/27/22 Omeprazole Magnesium [PriLOSEC OTC] 40 mg PO BID 07/25/21 05/27/22 hydrOXYzine HCL 10 mg PO TID 08/24/21 05/27/22 Calcium Carbonate/Vitamin D3 1 tab PO DAILY 05/27/22 05/27/22 [Calcium 600 mg-Vit D3 10 mcg (400 Unit)] Docusate [Colace] 200 mg PO BID 05/27/22 05/27/22 Escitalopram Oxalate [Lexapro] 10 mg PO DAILY 05/27/22 05/27/22 Folic Acid 1 mg PO DAILY 05/27/22 05/27/22 Levothyroxine Sodium [Synthroid] 50 mcg PO DAILY 05/27/22 05/27/22 OLANZapine [ZyPREXA] 10 mg PO HS 05/27/22 05/27/22 ondansetron HCL [Ondansetron HCl] 8 mg PO Q6H PRN 05/27/22 05/27/22 Allergies Allergy/AdvReac Type Severity Reaction Status Date / Time No Known Allergies Allergy Verified 05/27/22 20:28 Review of Systems ROS Statement: Those systems with pertinent positive or pertinent negative responses have been documented in the HPI. ROS Other: All systems not noted in ROS Statement are negative. Past Medical History Past Medical History: Cancer, GERD/Reflux Additional Past Medical History / Comment(s): Chronic back pain. Vertigo. small cell lung CA History of Any Multi-Drug Resistant Organisms: None Reported Past Surgical History: No Surgical Hx Reported Past Anesthesia/Blood Transfusion Reactions: No Reported Reaction Additional Past Anesthesia/Blood Transfusion Reaction / Comment(s): Has never had anesthesia. Past Psychological History: Anxiety, Depression Smoking Status: Current every day smoker Past Alcohol Use History: None Reported Past Drug Use History: None Reported - Past Family History Mother Family Medical History: Cancer Father Family Medical History: Cancer General Exam Limitations: no limitations General appearance: alert, in no apparent distress Head exam: Present: atraumatic Neck exam: Present: full ROM. Absent: meningismus Respiratory exam: Present: decreased breath sounds (Left base). Absent: respiratory distress, wheezes, rales, rhonchi, stridor, chest wall tenderness, accessory muscle use Cardiovascular Exam: Present: regular rate GI/Abdominal exam: Present: soft, tenderness (Diffuse). Absent: guarding, rebound, rigid Extremities exam: Present: normal capillary refill. Absent: pedal edema Back exam: Absent: tenderness, CVA tenderness (R), CVA tenderness (L) Neurological exam: Present: alert, oriented X3, normal gait Psychiatric exam: Present: normal affect, normal mood Skin exam: Present: warm, dry, normal color. Absent: cyanosis, diaphoretic, petechiae Course Vital Signs 05/27/22 05/27/22 16:02 19:50 Temperature 97.6 F 98.2 F Pulse Rate 97 65 Respiratory 22 18 Rate Blood Pressure 122/87 123/98 O2 Sat by Pulse 97 97 Oximetry Medical Decision Making - Medical Decision Making Patient was seen on May 25 for same abdominal pain and diagnosed with pancreatitis. He does have lung cancer with metastasis to liver. Does see Dr. Mace and is scheduled for chemo on . Last chemotherapy May 06 with subsequent radiation treatment. CT abdomen and pelvis with contrast on May 25 showed left lower lobe atelectasis or infiltrate with a small effusion. Numerous small hypoattenuating lesions scattered throughout the liver compatible with metastasis. Mild stranding about the pancreatic tail reflecting mild pancreatitis consistent with elevated amylase and lipase levels. Solid right renal mass measuring 5.4 x 4.0 cm compatible with renal cell carcinoma. Lesion to the right iliac bone likely metastatic in nature. Labs performed today show an increasing leukocytosis of 15.4, up from 12.0 Hemoglobin and hematocrit are stable. No evidence of lactic acidosis. Amylase 617 up from 544. IV fluids were initiated pain medication was given. Patient will be admitted to the hospital for pancreatitis, intractable pain, lung cancer with metastases to liver and bone. Patient is agreeable to this plan of care. Case discussed with Dr. Hernandez, oncology placed on consult. Case discussed with Dr. Lopez. - Lab Data Result diagrams: 05/27/22 19:50 05/27/22 19:50 Lab Results 05/27/22 05/27/22 05/27/22 Range/Units 19:50 19:50 19:50 WBC 15.4 H (3.8-10.6) k/uL RBC 3.67 L (4.30-5.90) m/uL Hgb 12.3 L (13.0-17.5) gm/dL Hct 36.8 L (39.0-53.0) % MCV 100.2 H (80.0-100.0) fL MCH 33.5 (25.0-35.0) pg MCHC 33.5 (31.0-37.0) g/dL RDW 12.6 (11.5-15.5) % Plt Count 227 (150-450) k/uL MPV 7.3 Neutrophils % 94 % Lymphocytes % 2 % Monocytes % 3 % Eosinophils % 0 % Basophils % 0 % Neutrophils # 14.5 H (1.3-7.7) k/uL Lymphocytes # 0.3 L (1.0-4.8) k/uL Monocytes # 0.5 (0-1.0) k/uL Eosinophils # 0.0 (0-0.7) k/uL Basophils # 0.0 (0-0.2) k/uL PT 10.4 (9.0-12.0) sec INR 1.0 (<1.2) APTT 28.1 (22.0-30.0) sec Sodium 133 L (137-145) mmol/L Potassium 4.2 (3.5-5.1) mmol/L Chloride 99 (98-107) mmol/L Carbon Dioxide 28 (22-30) mmol/L Anion Gap 6 mmol/L BUN 21 H (9-20) mg/dL Creatinine 0.89 (0.66-1.25) mg/dL Est GFR (CKD-EPI)AfAm >90 (>60 ml/min/1.73 sqM) Est GFR (CKD-EPI)NonAf >90 (>60 ml/min/1.73 sqM) Glucose 103 H (74-99) mg/dL Plasma Lactic Acid [place]reras (0.7-2.0) mmol/L Calcium 7.9 L (8.4-10.2) mg/dL Total Bilirubin 0.5 (0.2-1.3) mg/dL AST 42 (17-59) U/L ALT 27 (4-49) U/L Alkaline Phosphatase 101 (38-126) U/L Total Protein 6.5 (6.3-8.2) g/dL Albumin 3.6 (3.5-5.0) g/dL Amylase 618 H* (30-110) U/L 05/27/22 Range/Units 19:50 WBC (3.8-10.6) k/uL RBC (4.30-5.90) m/uL Hgb (13.0-17.5) gm/dL Hct (39.0-53.0) % MCV (80.0-100.0) fL MCH (25.0-35.0) pg MCHC (31.0-37.0) g/dL RDW (11.5-15.5) % Plt Count (150-450) k/uL MPV Neutrophils % % Lymphocytes % % Monocytes % % Eosinophils % % Basophils % % Neutrophils # (1.3-7.7) k/uL Lymphocytes # (1.0-4.8) k/uL Monocytes # (0-1.0) k/uL Eosinophils # (0-0.7) k/uL Basophils # (0-0.2) k/uL PT (9.0-12.0) sec INR (<1.2) APTT (22.0-30.0) sec Sodium (137-145) mmol/L Potassium (3.5-5.1) mmol/L Chloride (98-107) mmol/L Carbon Dioxide (22-30) mmol/L Anion Gap mmol/L BUN (9-20) mg/dL Creatinine (0.66-1.25) mg/dL Est GFR (CKD-EPI)AfAm (>60 ml/min/1.73 sqM) Est GFR (CKD-EPI)NonAf (>60 ml/min/1.73 sqM) Glucose (74-99) mg/dL Plasma Lactic Acid [place] 1.3 (0.7-2.0) mmol/L Calcium (8.4-10.2) mg/dL Total Bilirubin (0.2-1.3) mg/dL AST (17-59) U/L ALT (4-49) U/L Alkaline Phosphatase (38-126) U/L Total Protein (6.3-8.2) g/dL Albumin (3.5-5.0) g/dL Amylase (30-110) U/L Disposition Clinical Impression: Pancreatitis, acute, Abdominal pain, Renal mass, right, Metastatic lung cancer (metastasis from lung to other site), Intractable abdominal pain Disposition: ADMITTED IP TO THIS [facility] Referrals: Froilan Salguero MD [Primary Care Provider] - 1-2 days Decision Date: 05/27/22 Decision Time: 19:30
[2022-05-27 20:03] LABS: Basophils % (A) 0 %; Eosinophils % (A) 0 %; HCT 36.8 % (39.0-53.0); HGB 12.3 gm/dL (13.0-17.5); Lymphocytes # (A) 0.3 k/uL (1.0-4.8); Lymphocytes % (A) 2 %; MCH 33.5 pg (25.0-35.0); MCHC 33.5 g/dL (31.0-37.0); MCV 100.2 fL (80.0-100.0); Mean Platelet Volume 7.3; Monocytes # (A) 0.5 k/uL (0-1.0); Monocytes % (A) 3 %; Neutrophils # (A) 14.5 k/uL (1.3-7.7); Neutrophils % (A) 94 %; Platelet Count 227 k/uL (150-450); RBC 3.67 m/uL (4.30-5.90); RDW 12.6 % (11.5-15.5); WBC 15.4 k/uL (3.8-10.6)
[2022-05-27] MEDS ORDERED: NALOXONE 0.4 MG/ML 1 ML VIAL IV PRN (20:07)
[2022-05-27] MEDS: SODIUM CHLORIDE 0.9% 1,000 ML IV SCH (20:13)
[2022-05-27 20:16] LABS: Partial Thromboplastin Time 28.1 sec (22.0-30.0); Prothrombin Time 10.4 sec (9.0-12.0)
[2022-05-27 20:17] LABS: ALT 27 U/L (4-49); AST 42 U/L (17-59); African American GFR (CKD) >90 (>60 ml/min/1.73 sqM); Albumin 3.6 g/dL (3.5-5.0); Alkaline Phosphatase 101 U/L (38-126); Anion Gap 6 mmol/L; Blood Urea Nitrogen 21 mg/dL (9-20); Calcium 7.9 mg/dL (8.4-10.2); Carbon Dioxide 28 mmol/L (22-30); Chloride 99 mmol/L (98-107); Glucose 103 mg/dL (74-99); Non-African American GFR(CKD) >90 (>60 ml/min/1.73 sqM); Potassium 4.2 mmol/L (3.5-5.1); Sodium 133 mmol/L (137-145); Total Bilirubin 0.5 mg/dL (0.2-1.3); Total Protein 6.5 g/dL (6.3-8.2)
[2022-05-27 20:34] LABS: Amylase 618 U/L (30-110)
[2022-05-27 20:45] LABS: Lipase 5210 U/L (23-300)
[2022-05-27] MEDS ORDERED: PANTOPRAZOLE 40 MG TABLET PO SCH (21:00)
[2022-05-27] MEDS: DOCUSATE 100 MG CAP PO SCH (21:22)
[2022-05-27] MEDS: MECLIZINE 25 MG TAB PO SCH (21:22)
[2022-05-27] MEDS: OLANZapine 10 MG TAB PO SCH (21:22)
[2022-05-28] MEDS: HYDROcodone/APAP 10-325MG 1 EACH TAB PO PRN ×3 (00:42→18:59)
[2022-05-28] MEDS: hydrOXYzine HCL 10 MG TAB PO SCH ×4 (00:43→22:09)
[2022-05-28 01:31] VITALS: RESP 16
[2022-05-28] MEDS: LEVOTHYROXINE 50 MCG TAB PO SCH (06:08)
[2022-05-28] MEDS: PANTOPRAZOLE 40 MG TABLET PO SCH ×2 (09:05→16:29)
[2022-05-28] MEDS: CALCIUM CARB-VIT D 500 MG-5 MCG TAB PO SCH (09:05)
[2022-05-28] MEDS: ESCITALOPRAM 10 MG TAB PO SCH (09:06)
[2022-05-28] MEDS: FOLIC ACID 1 MG TAB PO SCH (09:07)
[2022-05-28] MEDS: DOCUSATE 100 MG CAP PO SCH ×2 (09:07→21:18)
[2022-05-28] MEDS: MECLIZINE 25 MG TAB PO SCH ×3 (09:08→22:09)
[2022-05-28] MEDS ORDERED: HYDROmorphone 0.5 MG/0.5 ML SYRINGE IVP PRN (12:04)
[2022-05-28] MEDS: SODIUM CHLORIDE 0.9% 1,000 ML IV SCH ×3 (15:25→21:18)
--- NOTE | 2022-05-28 16:29 | P.CONS ---
History of Present Illness - Reason for Consult Consult date: 05/28/22 lung cancer Requesting physician: Eyal Hernandez - Chief Complaint Abdominal pain - History of Present Illness Mr. Jung is a very pleasant 61 yo male with history of lung cancer, follows with Dr. Mace, here for abdominal pain due to persistent/worsening pancreatitis. Recently here for same complaints, AP, vomiting, found to have pancreatitis and treated conservatively. Back with worsening symptoms. Labs with slightly increase leukocytosis, increased lipase and increased amylase. We were consulted for his lung cancer. He is scheduled to follow up with Dr. Mace on 05/30/22. He was recently found to have disease progression with increasing bone pain from mets while on keytruda, which was discontinued. Last seen by Dr. Mace to discuss this on 04/18/22. Plan was to start palliative chemotherapy with abraxane weekly after he pursues palliative RT. C1 of chemotherapy scheduled on 06/01/22. Oncologic history: This is a very nice patient who presented with persistent cough and right sided chest wall pain,he had a CTA chest on 07/25/2021 which revealed enlarged right paratracheal and right hilar nodes up to 3 cm,causing some encasement of right pulmonary artery,multiple inflammatory nodules in RUL and LLL nodules,about 4,measured up to 7mm,OMAR nodule measured 1.3 cm,there was also sclerotic lesion at T10,right kidney mass about 5 cm (it was 2.[address] and MRI done in 2012). On 08/25/2021,he underwent EBUS,FNA of station 4R and 10R were positive for adenocarcinoma of the lung. On 09/08/2021,brain MRI was negative for metastatic disease. On 09/16/2021,PET scan revealed suspicious uptake in RUL lung,OMAR nodules,right hilar and mediastinal nodes,diffuse osseous metastasis. PDL-1 was negative. 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 He had palliative XRT to right shoulder and back in September/2021 On 10/19/2021,he started carboplatin/alimta/keytruda and zometa. Completed 4 cycles on 12/18/2021. On 12/23/2021,PET scan revealed improvement in his disease. He started maintenance alimta/keytruda on 01/17/2022,then alimta was held on 02/02/2022 due to creatinine went up Repeat PET scan on 04/07/2022 revealed evidence of disease progression in his l marquise and right iliac creast,T2 Seen in 03/2022. He has had worsening right hip pain over the last 3 weeks,5- 7/10,radiating down his leg,no change in bowel habits,no urinary symptoms,otherwise,he feels fine. Disease progression discussed. keytruda discontinued. referred for palliative chemotherapy and plan on starting chemotherapy with abraxane on 06/01/22. Past Medical History Past Medical History: Cancer, GERD/Reflux, Thyroid Disorder Additional Past Medical History / Comment(s): Chronic back pain. Vertigo. Small cell lung CA diagnoed in 2020-mets to iliac bone History of Any Multi-Drug Resistant Organisms: None Reported Past Surgical History: No Surgical Hx Reported Past Anesthesia/Blood Transfusion Reactions: No Reported Reaction Additional Past Anesthesia/Blood Transfusion Reaction / Comm: Has never had anesthesia. Past Psychological History: Anxiety, Depression Smoking Status: Former smoker Past Alcohol Use History: None Reported Additional Past Alcohol Use History / Comment(s): Has been smoking since 20 yrs of age, 1 ppd. Past Drug Use History: None Reported - Past Family History Mother Family Medical History: Cancer Father Family Medical History: Cancer Medications and Allergies Home Medications Medication Instructions Recorded Confirmed Type HYDROcodone/APAP 10-325MG [[place] 1 tab PO Q4H PRN 07/25/21 05/27/22 History 10-325] Meclizine [Antivert] 25 mg PO TID 07/25/21 05/27/22 History Omeprazole Magnesium [PriLOSEC OTC] 40 mg PO BID 07/25/21 05/27/22 History hydrOXYzine HCL 10 mg PO TID 08/24/21 05/27/22 History Calcium Carbonate/Vitamin D3 1 tab PO DAILY 05/27/22 05/27/22 History [Calcium 600 mg-Vit D3 10 mcg (400 Unit)] Docusate [Colace] 200 mg PO BID 05/27/22 05/27/22 History Escitalopram Oxalate [Lexapro] 10 mg PO DAILY 05/27/22 05/27/22 History Folic Acid 1 mg PO DAILY 05/27/22 05/27/22 History Levothyroxine Sodium [Synthroid] 50 mcg PO DAILY 05/27/22 05/27/22 History OLANZapine [ZyPREXA] 10 mg PO HS 05/27/22 05/27/22 History ondansetron HCL [Ondansetron HCl] 8 mg PO Q6H PRN 05/27/22 05/27/22 History Allergies Allergy/AdvReac Type Severity Reaction Status Date / Time No Known Allergies Allergy Verified 05/27/22 20:28 Physical Exam Vitals: Vital Signs Temp Pulse Pulse Resp BP BP Pulse Ox 05/28/22 11:29 97.4 F L 64 16 124/74 94 L 05/28/22 09:11 66 123/70 05/28/22 08:20 66 16 05/28/22 05:00 97.7 F 59 L 16 121/79 91 L 05/28/22 01:30 97.8 F 62 16 115/76 98 05/27/22 23:00 71 15 127/74 98 05/27/22 19:50 98.2 F 65 18 123/98 97 05/27/22 16:02 97.6 F 97 22 122/87 97 Intake and Output 05/27/22 05/28/22 05/28/22 22:59 06:59 14:59 Intake Total 750 Balance 750 Intake: Intake, IV Titration 750 Amount Sodium Chloride 0.9% 1, 750 000 ml @ 75 mls/hr IV . [id number] [facility] Rx#:[id number] Other: Voiding Method Toilet Toilet Weight 81.647 kg 81.647 kg Gen.: No acute distress. HEENT: Mucosa moist. Lungs: No respiratory distress. Heart: Regular rate. Abdomen: Soft. Neuro: Alert and oriented 3. Skin: No jaundice. Psych: Appropriate affect. Results CBC & Chem 7: 05/27/22 19:50 05/27/22 19:50 Labs: Abnormal Lab Results - Last 24 Hours (Table) 05/27/22 05/27/22 Range/Units 19:50 19:50 WBC 15.4 H (3.8-10.6) k/uL RBC 3.67 L (4.30-5.90) m/uL Hgb 12.3 L (13.0-17.5) gm/dL Hct 36.8 L (39.0-53.0) % MCV 100.2 H (80.0-100.0) fL Neutrophils # 14.5 H (1.3-7.7) k/uL Lymphocytes # 0.3 L (1.0-4.8) k/uL Sodium 133 L (137-145) mmol/L BUN 21 H (9-20) mg/dL Glucose 103 H (74-99) mg/dL Calcium 7.9 L (8.4-10.2) mg/dL Amylase 618 H* (30-110) U/L Lipase 5210 H (23-300) U/L Assessment and Plan Assessment: 1. Acute pancreatitis, persistent/worsening 2. Metastatic lung cancer 3. Cancer pain Plan: Mr. Jung is a very pleasant 61 yo male with history of metastatic lung cancer, with recent progression and plan of starting palliative chemotherapy with weekly abraxane, who is here for persisent/severe abdominal pain due to pancreatitis. Continue management of pancreatitis as per primary team. Will need to hold chemotherapy until he overall improves. C1 is scheduled for 06/01/22, however pt will need to improve prior to initiation of this. Pain control for his cancer associated pain as well as his abdominal pain. we will continue to follow pt with you. No objections to discharge this patient othe rwise stable as he is already feeling better now. Discussed with pt and he is agreeable to the plan. All questions answered.
[2022-05-28] MEDS: OLANZapine 10 MG TAB PO SCH (22:09)
--- NOTE | 2022-05-28 22:52 | HP ---
HISTORY AND PHYSICAL CHIEF COMPLAINT: Abdominal pain. HISTORY OF PRESENT ILLNESS: This 61-year-old gentleman with a past medical history of metastatic malignancy with lung cancer/renal cancer, had previous history of pancreatitis. The patient is complaining of upper abdominal pain and the patient came to [facility]. The patient had a recent CAT scan done which showed mild pancreatitis. Amylase and lipase are elevated. The patient admitted for evaluation and treatment. There is no history of any fever, rigors, or chills at this time. PAST MEDICAL HISTORY: Reviewed include metastatic malignancy. The rest of the history and the chart is reviewed. HOME MEDICATIONS: Reviewed include Zofran, dose and rest of medication noted. ALLERGIES: None. FAMILY HISTORY: History of cancer in the family. SOCIAL HISTORY: Previous smoker. REVIEW OF SYSTEMS: 14-point review is negative as mentioned earlier. PHYSICAL EXAMINATION: VITAL SIGNS: Pulse is 64, blood pressure , respiration 16. HEENT: Conjunctivae normal. NECK: No jugular venous distention. CARDIOVASCULAR: S1, S2. RESPIRATIONS: Diminished at the bases. Few scattered rhonchi and crackles. ABDOMEN: Soft, nontender. LEGS: No edema. NERVOUS SYSTEM: No focal deficits. LABORATORY DATA: WBC 15.2, hemoglobin Sodium 133, amylase 618, lipase is 5210. ASSESSMENT: 1. Acute pancreatitis. 2. History of recurrent pancreatitis. 3. Metastatic malignancy. 4. Gastroesophageal reflux disease. 5. Hypothyroidism. 6. Multiple medical issues. RECOMMENDATIONS: This 61-year-old gentleman with a past medical history of multiple medical issues. We will monitor the patient closely. Symptomatic treatment. We will keep the patient n.p.o. till the pain is abated. Otherwise, I would recommend pain medications and proton pump inhibitors. Prognosis is guarded. I will increase IV fluids to 125 mL/hour and repeat labs in the morning. DVT prophylaxis. Resume the home medications. Consult Dr. Mace for continued evaluation for the malignancy and guarded prognosis. Further recommendations to follow. MMODL / IJN: [id number] /
[2022-05-29] MEDS: SODIUM CHLORIDE 0.9% 1,000 ML IV SCH (04:17)
[2022-05-29] MEDS: LEVOTHYROXINE 50 MCG TAB PO SCH (05:35)
[2022-05-29 08:57] LABS: Basophils # (A) 0.01 X 10*3/uL (0.00-0.10); Basophils % (A) 0.1 %; Eosinophils # (A) 0 X 10*3/uL (0.04-0.35); Eosinophils % (A) 0 %; HCT 34.7 % (39.6-50.0); HGB 11.4 g/dL (13.0-17.0); Lymphocytes # (A) 0.25 X 10*3/uL (0.90-5.00); Lymphocytes % (A) 2.4 %; MCH 33.1 pg (27.0-32.0); MCHC 32.9 g/dL (32.0-37.0); MCV 100.9 fL (80.0-97.0); Mean Platelet Volume 8.8 fL (9.5-12.2); Monocytes # (A) 0.39 X 10*3/uL (0.20-1.00); Monocytes % (A) 3.8 %; Neutrophils # (A) 9.65 X 10*3/uL (1.80-7.70); Neutrophils % (A) 93.1 %; Platelet Count 147 X 10*3/uL (140-440); RBC 3.44 X 10*6/uL (4.40-5.60); RDW 12.7 % (11.5-14.5); WBC 10.36 X 10*3/uL (4.50-10.00)
[2022-05-29 08:58] LABS: Immature Grans, Automated 0.6 %; NRBC Per 100 WBC 0 /100 WBCS (0.0-0.0)
[2022-05-29 09:15] LABS: African American GFR (CKD) 112.5 (60.0-200.0); Albumin/Globulin Ratio 1.36 (1.60-3.17); Anion Gap 8.4 mmol/L (10.00-18.00); BUN/Creat Ratio 18.88 Ratio (12.00-20.00); Blood Urea Nitrogen 15.1 mg/dL (9.0-27.0); Calcium 7.3 mg/dL (8.7-10.3); Carbon Dioxide 25.6 mmol/L (20.0-27.5); Globulin 2.2 g/dL (1.6-3.3); Non-African American GFR(CKD) 97.1 (60.0-200.0); Potassium 4.1 mmol/L (3.5-5.5); Total Bilirubin 0.3 mg/dL (0.30-1.20); Total Protein 5.2 g/dL (6.2-8.2)
[2022-05-29] MEDS: MECLIZINE 25 MG TAB PO SCH (09:51)
[2022-05-29] MEDS: ESCITALOPRAM 10 MG TAB PO SCH (09:51)
[2022-05-29] MEDS: PANTOPRAZOLE 40 MG TABLET PO SCH (09:51)
[2022-05-29] MEDS: CALCIUM CARB-VIT D 500 MG-5 MCG TAB PO SCH (09:51)
[2022-05-29] MEDS: FOLIC ACID 1 MG TAB PO SCH (09:51)
[2022-05-29] MEDS: DOCUSATE 100 MG CAP PO SCH (09:51)
[2022-05-29] MEDS: hydrOXYzine HCL 10 MG TAB PO SCH (09:51)
[2022-05-29] MEDS: HYDROcodone/APAP 10-325MG 1 EACH TAB PO PRN (09:57)
[2022-05-29 11:41] VITALS: BP 137/85; PULSE 71; TEMP 98
--- NOTE | 2022-06-01 16:18 | P.DS ---
Providers Date of admission: 05/27/22 20:32 Expected date of discharge: 05/29/22 Attending physician: Eyal Hernandez MD Consults: 05/27/22 20:07 Consult Physician Routine Consulting Provider: Hortensia Mace Consult Reason/Comments: Intractable pain, lung cancer with metastasis Do you want consulting provider notified?: Yes, Notify in am Primary care physician: Noemy Mcgovern [facility] Course: Final diagnosis Acute pancreatitis history of recurrent pancreatitis metastatic malignancy of small cell lung cancer with metastases to the iliac bone Gastroesophageal reflux disease Hypothyroidism History of anxiety/depression Chronic back pain history Discharge disposition Patient is being discharged in a stable condition with guarded prognosis to home. Patient will follow-up with Dr. Salguero in the outpatient setting upon discharge. Patient is to follow-up with Dr. Leon oncology as scheduled tomorrow a.m. Total time taken is greater than 35 minutes. Hospital course This is a 61 year-old male who was recently admitted with abdominal pain found to have acute pancreatitis as seen on CAT scan. Patient was hydrated with normal saline and bowel rest and repeat labs trending down including amylase and lipase and patient feeling much better. Patient extremely anxious to be discharged home as he wants to follow-up and make his appointment with Dr. Leon tomorrow morning. Oncology consulted and aware and will see him in the outpatient follow-up. Recommend continue on current diet and slowly advance as tolerated. Currently no reports of chest pain, shortness of breath, or palpitations. Patient is afebrile. No reports of nausea or vomiting and patient is tolerating diet. Patient will be discharged home today. Guarded prognosis. Physical exam: Gen: This is a 61-year-old male awake, alert and oriented 3, well-developed, well-nourished HEENT: Head is atraumatic, normocephalic. Pupils equal, round. Sclerae is anicteric. NECK: Supple. No JVD. No lymphadenopathy. No thyromegaly. LUNGS: Clear to auscultation. No wheezes or rhonchi. No intercostal retractions. HEART: Regular rate and rhythm. No murmur. ABDOMEN: Soft. Bowel sounds are present. No masses. No tenderness. EXTREMITIES: No pedal edema. No calf tenderness. NEUROLOGICAL: Patient is awake, alert and oriented x3. Cranial nerves 2 through 12 are grossly intact. Please refer to medication reconciliation sheet for a list of medications. The impression and plan of care has been dictated by Mishel Lr, Nurse Practitioner as directed. Dr. Katy MD I have performed a history and examination and MDM of this patient, discussed the same with the dictator, and agree with the dictator's assessment and plan as written ,documented as a scribe. Based on total visit time, I have performed more than 50% of the visit. Patient Condition at Discharge: Stable Plan - Discharge Summary New Discharge Prescriptions: Continue Meclizine [Antivert] 25 mg PO TID HYDROcodone/APAP 10-325MG [[place] 10-325] 1 tab PO Q4H PRN PRN Reason: Pain hydrOXYzine HCL 10 mg PO TID Levothyroxine Sodium [Synthroid] 50 mcg PO DAILY Omeprazole Magnesium [PriLOSEC OTC] 40 mg PO BID Escitalopram Oxalate [Lexapro] 10 mg PO DAILY Docusate [Colace] 200 mg PO BID Calcium Carbonate/Vitamin D3 [Calcium 600 mg-Vit D3 10 mcg (400 Unit)] 1 tab PO DAILY ondansetron HCL [Zofran] 8 mg PO Q6H PRN PRN Reason: Nausea And Vomiting OLANZapine [ZyPREXA] 10 mg PO HS Folic Acid 1 mg PO DAILY Discharge Medication List HYDROcodone/APAP 10-325MG [[place] 10-325] 1 tab PO Q4H PRN 07/25/21 [History] Meclizine [Antivert] 25 mg PO TID 07/25/21 [History] Omeprazole Magnesium [PriLOSEC OTC] 40 mg PO BID 07/25/21 [History] hydrOXYzine HCL 10 mg PO TID 08/24/21 [History] Calcium Carbonate/Vitamin D3 [Calcium 600 mg-Vit D3 10 mcg (400 Unit)] 1 tab PO DAILY 05/27/22 [History] Docusate [Colace] 200 mg PO BID 05/27/22 [History] Escitalopram Oxalate [Lexapro] 10 mg PO DAILY 05/27/22 [History] Folic Acid 1 mg PO DAILY 05/27/22 [History] Levothyroxine Sodium [Synthroid] 50 mcg PO DAILY 05/27/22 [History] OLANZapine [ZyPREXA] 10 mg PO HS 05/27/22 [History] ondansetron HCL [Zofran] 8 mg PO Q6H PRN 05/27/22 [History] Follow up Appointment(s)/Referral(s): Froilan Salguero MD [Primary Care Provider] - 1-2 days (Please call and schedule appointment.) Hortensia Mace MD [STAFF PHYSICIAN] - 05/30/22 9:15 am (Please keep your 05/30/22 appointment.) Ambulatory/Diagnostic Orders: Complete Blood Count w/diff [LAB.AMB] Time Frame: 3 Days, Location: None Selected Patient Instructions/Handouts: Pancreatitis (DC) Activity/Diet/Wound Care/Special Instructions: Activity Limited until follow-up Recommend continue with clear liquids and slowly advance to full liquid diet for the next few days and slowly advance as tolerated if having no abdominal pain Follow-up primary care provider in the outpatient setting Follow-up with oncology at your scheduled appointment tomorrow morning Recommend repeat labs in the next few days Discharge Disposition: HOME SELF-CARE
== END 2022-05-29 15:43 | disposition home or self-care (01) ==
LOC: EC 15:53 → 5NMEDONC 20:32
PROVIDERS: ADMIT Internal Medicine; ATTEND Internal Medicine
DX: K85.90 Acute pancreatitis without necrosis or infection, unspecified (principal); K86.1 Other chronic pancreatitis; G89.3 Neoplasm related pain (acute) (chronic); C34.90 Malignant neoplasm of unspecified part of unspecified bronchus or lung; C78.7 Secondary malignant neoplasm of liver and intrahepatic bile duct; C79.51 Secondary malignant neoplasm of bone; K21.9 Gastro-esophageal reflux disease without esophagitis; F32.A Depression, unspecified; F41.9 Anxiety disorder, unspecified; E03.9 Hypothyroidism, unspecified; M54.9 Dorsalgia, unspecified; F17.200 Nicotine dependence, unspecified, uncomplicated; Z79.899 Other long term (current) drug therapy; Z79.890 Hormone replacement therapy; Z85.528 Personal history of other malignant neoplasm of kidney; Z80.9 Family history of malignant neoplasm, unspecified; Z20.822 Contact with and (suspected) exposure to COVID-19
CPT/HCPCS: 96361 ×2; 96374; 96375; 99285; 36415; 80053 ×2; 82150 ×2; 83605; 83690 ×2; 85025 ×2; 85610; 85730; 87635; G0378 ×3; J2405; C9113; J1170

== ENCOUNTER 2022-06-12 06:42 | Emergency (ER) | payer BC ==
[2022-06-12] MEDS ORDERED: HYDROmorphone 0.5 MG/0.5 ML SYRINGE IVP STA ×2 (07:00→09:31)
[2022-06-12] MEDS ORDERED: SODIUM CHLORIDE 0.9% 500 ML 500 ML IV STA (07:00)
[2022-06-12] MEDS ORDERED: ONDANSETRON 4 MG/2 ML VIAL IVP STA (07:00)
--- NOTE | 2022-06-12 07:22 | ED ---
Abdominal Pain HPI - General Chief Complaint: Abdominal Pain Stated Complaint: Abdominal Pain Time Seen by Provider: 06/12/22 06:52 Source: EMS Mode of arrival: EMS Limitations: no limitations - History of Present Illness Initial Comments: 61-year-old male presents emergency Department via EMS chief complaint abdominal pain. Patient has known lung cancer with metastasis patient's had some recent hospitalizations for acute pancreatitis. 2 his cancer. Patient states he is scheduled for chemotherapy again this week. Patient states that he had his last dose 3 weeks ago they have been switching his medications as his disease has been progressing. Patient states a recent his been having watery diarrhea, nausea, abdominal distention. Patient denies known fevers or chills denies any current chest pain palpitations headache dizziness. Patient states that he is on Sweet at home for the pain but is not helping much at this time. Patient states his pain control as his primary complaint. Patient offers no other associated symptoms. - Related Data Home Medications Medication Instructions Recorded Confirmed HYDROcodone/APAP 10-325MG [[place] 1 tab PO Q4H PRN 07/25/21 05/27/22 10-325] Meclizine [Antivert] 25 mg PO TID 07/25/21 05/27/22 Omeprazole Magnesium [PriLOSEC OTC] 40 mg PO BID 07/25/21 05/27/22 hydrOXYzine HCL 10 mg PO TID 08/24/21 05/27/22 Calcium Carbonate/Vitamin D3 1 tab PO DAILY 05/27/22 05/27/22 [Calcium 600 mg-Vit D3 10 mcg (400 Unit)] Docusate [Colace] 200 mg PO BID 05/27/22 05/27/22 Escitalopram Oxalate [Lexapro] 10 mg PO DAILY 05/27/22 05/27/22 Folic Acid 1 mg PO DAILY 05/27/22 05/27/22 Levothyroxine Sodium [Synthroid] 50 mcg PO DAILY 05/27/22 05/27/22 OLANZapine [ZyPREXA] 10 mg PO HS 05/27/22 05/27/22 ondansetron HCL [Zofran] 8 mg PO Q6H PRN 05/27/22 05/27/22 Allergies Allergy/AdvReac Type Severity Reaction Status Date / Time No Known Allergies Allergy Verified 06/12/22 06:55 Review of Systems ROS Statement: Those systems with pertinent positive or pertinent negative responses have been documented in the HPI. ROS Other: All systems not noted in ROS Statement are negative. Past Medical History Past Medical History: Cancer, GERD/Reflux, Thyroid Disorder Additional Past Medical History / Comment(s): Chronic back pain. Vertigo. Small cell lung CA diagnoed in 2020-mets to iliac bone History of Any Multi-Drug Resistant Organisms: None Reported Past Surgical History: No Surgical Hx Reported Past Anesthesia/Blood Transfusion Reactions: No Reported Reaction Additional Past Anesthesia/Blood Transfusion Reaction / Comment(s): Has never had anesthesia. Past Psychological History: Anxiety, Depression Smoking Status: Former smoker Past Alcohol Use History: None Reported Past Drug Use History: None Reported - Past Family History Mother Family Medical History: Cancer Father Family Medical History: Cancer General Exam Limitations: no limitations General appearance: alert, in no apparent distress Head exam: Present: atraumatic, normocephalic, normal inspection Eye exam: Present: normal appearance, PERRL, EOMI. Absent: scleral icterus, conjunctival injection, periorbital swelling ENT exam: Present: normal exam, mucous membranes moist Neck exam: Present: normal inspection, full ROM. Absent: tenderness, mening ismus, lymphadenopathy Respiratory exam: Present: normal lung sounds bilaterally. Absent: respiratory distress, wheezes, rales, rhonchi, stridor Cardiovascular Exam: Present: regular rate, normal rhythm, normal heart sounds. Absent: systolic murmur, diastolic murmur, rubs, gallop, clicks GI/Abdominal exam: Present: soft, distended, tenderness, normal bowel sounds, other (Petechial rash on her lower abdomen). Absent: guarding, rebound, rigid Course Vital Signs 06/12/22 06/12/22 06/12/22 06:56 08:20 09:54 Temperature 98.6 F Pulse Rate 81 74 74 Respiratory 15 20 18 Rate Blood Pressure 134/59 133/90 143/93 O2 Sat by Pulse 98 95 95 Oximetry 06/12/22 10:51 Temperature Pulse Rate 83 Respiratory 20 Rate Blood Pressure 136/98 O2 Sat by Pulse 97 Oximetry Medical Decision Making - Medical Decision Making 7-year-old male present emergency department for evaluation of increase abdominal pain. Patient does have evidence of acute pancreatitis she has been worsening. Patient has a very large pseudocyst. CT was interpreted by me and radiology shows evidence of cirrhosis, ascites, metastatic cancer. I did discuss case with medicine. Patient needs GI services. I did discuss case with Dr. Norris at [facility] who accepts transfer. Patient was adequate pain control, IV fluids patient is nothing by mouth patient will require electrolyte replacement. - Lab Data Result diagrams: 06/12/22 07:05 06/12/22 07:05 Lab Results 06/12/22 06/12/22 06/12/22 Range/Units 07:05 07:05 07:05 WBC 11.0 H (3.8-10.6) k/uL RBC 3.91 L (4.30-5.90) m/uL Hgb 12.3 L (13.0-17.5) gm/dL Hct 36.4 L (39.0-53.0) % MCV 93.2 D (80.0-100.0) fL MCH 31.4 (25.0-35.0) pg MCHC 33.7 (31.0-37.0) g/dL RDW 13.7 (11.5-15.5) % Plt Count 162 (150-450) k/uL MPV 8.4 Neutrophils % 95 % Lymphocytes % 2 % Monocytes % 2 % Eosinophils % 0 % Basophils % 0 % Neutrophils # 10.5 H (1.3-7.7) k/uL Lymphocytes # 0.3 L (1.0-4.8) k/uL Monocytes # 0.2 (0-1.0) k/uL Eosinophils # 0.0 (0-0.7) k/uL Basophils # 0.0 (0-0.2) k/uL PT 13.9 H (9.0-12.0) sec INR 1.4 H (<1.2) APTT 26.6 (22.0-30.0) sec Sodium 137 (137-145) mmol/L Potassium 2.9 L (3.5-5.1) mmol/L Chloride 104 (98-107) mmol/L Carbon Dioxide 29 (22-30) mmol/L Anion Gap 4 mmol/L BUN 17 (9-20) mg/dL Creatinine 0.66 (0.66-1.25) mg/dL Est GFR (CKD-EPI)AfAm >90 (>60 ml/min/1.73 sqM) Est GFR (CKD-EPI)NonAf >90 (>60 ml/min/1.73 sqM) Glucose 133 H (74-99) mg/dL Plasma Lactic Acid Contreras (0.7-2.0) mmol/L Calcium 5.9 L* (8.4-10.2) mg/dL Total Bilirubin 0.9 (0.2-1.3) mg/dL AST 52 (17-59) U/L ALT 37 (4-49) U/L Alkaline Phosphatase 115 (38-126) U/L Total Protein 5.1 L (6.3-8.2) g/dL Albumin 2.7 L (3.5-5.0) g/dL Amylase 2868 H* (30-110) U/L Lipase 9155 H (23-300) U/L 06/12/22 Range/Units 07:05 WBC (3.8-10.6) k/uL RBC (4.30-5.90) m/uL Hgb (13.0-17.5) gm/dL Hct (39.0-53.0) % MCV (80.0-100.0) fL MCH (25.0-35.0) pg MCHC (31.0-37.0) g/dL RDW (11.5-15.5) % Plt Count (150-450) k/uL MPV Neutrophils % % Lymphocytes % % Monocytes % % Eosinophils % % Basophils % % Neutrophils # (1.3-7.7) k/uL Lymphocytes # (1.0-4.8) k/uL Monocytes # (0-1.0) k/uL Eosinophils # (0-0.7) k/uL Basophils # (0-0.2) k/uL PT (9.0-12.0) sec INR (<1.2) APTT (22.0-30.0) sec Sodium (137-145) mmol/L Potassium (3.5-5.1) mmol/L Chloride (98-107) mmol/L Carbon Dioxide (22-30) mmol/L Anion Gap mmol/L BUN (9-20) mg/dL Creatinine (0.66-1.25) mg/dL Est GFR (CKD-EPI)AfAm (>60 ml/min/1.73 sqM) Est GFR (CKD-EPI)NonAf (>60 ml/min/1.73 sqM) Glucose (74-99) mg/dL Plasma Lactic Acid Contreras 2.0 (0.7-2.0) mmol/L Calcium (8.4-10.2) mg/dL Total Bilirubin (0.2-1.3) mg/dL AST (17-59) U/L ALT (4-49) U/L Alkaline Phosphatase (38-126) U/L Total Protein (6.3-8.2) g/dL Albumin (3.5-5.0) g/dL Amylase (30-110) U/L Lipase (23-300) U/L - EKG Data -: EKG Interpreted by Me EKG Comments: EKG A. fib rate of 72 QRS 94 QT/ QTC 400/425 Disposition Clinical Impression: Hypokalemia, Hypocalcemia, Metastatic lung cancer (metastasis from lung to other site), Acute pancreatitis, Pseudocyst of pancreas due to acute pa ncreatitis, Ascites Disposition: OTHER INSTITUTION NOT DEFINED Condition: Fair Referrals: Froilan Salguero MD [Primary Care Provider] - 1-2 days Time of Disposition: 10:45 - Out of Hospital Transfer - Req. Specs Out of Hospital Transfer - Requested Specifics: Other Emergency Center ([place])
[2022-06-12 07:25] LABS: Basophils % (A) 0 %; Eosinophils % (A) 0 %; HCT 36.4 % (39.0-53.0); HGB 12.3 gm/dL (13.0-17.5); Lymphocytes # (A) 0.3 k/uL (1.0-4.8); Lymphocytes % (A) 2 %; MCH 31.4 pg (25.0-35.0); MCHC 33.7 g/dL (31.0-37.0); Mean Platelet Volume 8.4; Monocytes # (A) 0.2 k/uL (0-1.0); Monocytes % (A) 2 %; Neutrophils # (A) 10.5 k/uL (1.3-7.7); Neutrophils % (A) 95 %; Platelet Count 162 k/uL (150-450); RBC 3.91 m/uL (4.30-5.90); RDW 13.7 % (11.5-15.5)
[2022-06-12 07:28] LABS: MCV 93.2 fL (80.0-100.0)
[2022-06-12 07:32] LABS: ALT 37 U/L (4-49); AST 52 U/L (17-59); African American GFR (CKD) >90 (>60 ml/min/1.73 sqM); Albumin 2.7 g/dL (3.5-5.0); Alkaline Phosphatase 115 U/L (38-126); Anion Gap 4 mmol/L; Blood Urea Nitrogen 17 mg/dL (9-20); Carbon Dioxide 29 mmol/L (22-30); Chloride 104 mmol/L (98-107); Glucose 133 mg/dL (74-99); Non-African American GFR(CKD) >90 (>60 ml/min/1.73 sqM); Potassium 2.9 mmol/L (3.5-5.1); Sodium 137 mmol/L (137-145); Total Bilirubin 0.9 mg/dL (0.2-1.3); Total Protein 5.1 g/dL (6.3-8.2)
[2022-06-12 07:34] LABS: INR 1.4 (<1.2); Partial Thromboplastin Time 26.6 sec (22.0-30.0); Prothrombin Time 13.9 sec (9.0-12.0)
[2022-06-12 08:00] LABS: Calcium 5.9 mg/dL (8.4-10.2)
[2022-06-12 08:05] LABS: Amylase 2868 U/L (30-110); Lipase 9155 U/L (23-300)
--- NOTE | 2022-06-12 09:46 | CT ---
EXAMINATION TYPE: CT abdomen pelvis w con DATE OF EXAM: 06/12/2022 COMPARISON: 05/25/2022, 06/05/2022 [facility]. INDICATION: Bloating, pain, known small cell lung CA DLP: 1135.7 mGycm, Automated exposure control for dose reduction was used. CONTRAST: 100 mL of Isovue 300. Study performed without Oral Contrast TECHNIQUE: Axial images were obtained from above the diaphragm to the pubic rami in the axial plane a t 5 mm thick sections. Reconstructed images are reviewed on the computer in the coronal plane. FINDINGS: Limited CT sections are obtained the lung bases. Left basilar atelectasis is present. CT ABDOMEN: Ascites is present. Liver: Heterogenous. Multiple small lesions, likely metastasis, better visualized currently. Spleen: Normal Pancreas: Multiloculated hypodensity extends from the tail of the pancreas. The largest component bel ow the right diaphragm has increased in size measuring 16.6 x 11.3 cm. This is compressing the fundus of the stomach. Additional smaller loculated portion extends to the tail of the pancreas in this com pressing the colon. Note is made there is diffuse thickening to the antrum of the stomach and within the splenic flexure of the colon. Pseudocyst and cystic neoplasm tail the pancreas should be consider ed. Correlation with the patient's white count to evaluate for infected pseudocyst is recommended. Fi ndings are worsening from comparison studies. Adrenal glands: The adrenal glands are normal. Gallbladder: Poorly visualized Kidneys: There is a 4.9 x 3.7 cm heterogenous right renal mass midportion. Superior pole right renal cysts are present. Posterior left renal cysts are present.. No hydronephrosis is present. Multiple r enal cysts are present. There is a nodular lesion in the perinephric region measuring 1.6 cm. Aorta: Vascular calcification is within the aorta. Inferior vena cava: Normal. CT PELVIS: Small bowel loops are dilated. There is thickening through the splenic flexure wall of the colon. Anurag e mild diffuse wall thickening within the ascending colon is also noted. Antrum of the stomach is thi ckened as well as proximal duodenum. There is compression of the fundus of the stomach from suspected pseudocyst formation discussed above. This study is without oral contrast limiting bowel evaluation. Appendix: Not identified. Urinary bladder: Normal. Genitourinary structures: Prostate is normal in size. Small calcifications are present. Osseous structures: Sclerotic lesions within the lumbar thoracic spine may be present. Some sclerotic areas may be within the right ilium as well. IMPRESSIONS: 1. Enlarging cystlike structure in the left upper quadrant. Correlate for enlarging pseudocyst. Cyst ic neoplasm not excluded. Correlate for an infected pseudocyst. This is compressing the fundus of th e stomach. 2. Diffuse fluid-filled prominent small bowel loops. Correlate for ileus. 3. Thickening of the antrum of the stomach and proximal duodenum. 4. Ascites, developing from comparison. 5. Multiple hepatic lesions suspicious for metastasis. 6. Right renal solid lesion. 7. Multiple renal cysts. 8. Sclerotic osseous lesions within the thoracic and lumbar spine and left ilium
[2022-06-12] MEDS ORDERED: CALCIUM CARBONATE 500 MG CHEWABLE PO STA (10:59)
[2022-06-12] MEDS ORDERED: POTASSIUM CHLORIDE ER 20 MEQ TAB.ER PO STA (10:59)
[2022-06-12 12:32] VITALS: BP 139/93; PULSE 82; RESP 18; TEMP 98.4
== END 2022-06-12 12:20 | disposition other institution (70) ==
LOC: EC 06:42
DX: E87.6 Hypokalemia (principal); E83.51 Hypocalcemia; C34.90 Malignant neoplasm of unspecified part of unspecified bronchus or lung; K85.90 Acute pancreatitis without necrosis or infection, unspecified; R18.8 Other ascites; K86.3 Pseudocyst of pancreas; K21.9 Gastro-esophageal reflux disease without esophagitis; E07.9 Disorder of thyroid, unspecified; F41.9 Anxiety disorder, unspecified; F32.A Depression, unspecified; Z87.891 Personal history of nicotine dependence; Z79.890 Hormone replacement therapy; Z79.899 Other long term (current) drug therapy
CPT/HCPCS: 93005; 80053; 82150; 83605; 83690; 85025; 85610; 85730; 74177; 99285; 96374; 96375; 96376; 96361; J2405; J1170; Q9967; 36415